=== PATIENT | female | born 1975 | race Caucasian/White ===

== ENCOUNTER → 2017-08-07 | Outpatient (CLI) | payer OTHER | LOC: FIMAGING 08:29 | PROVIDERS: ATTEND Internal Medicine Hematology & Oncology | DX: Z12.31 Encounter for screening mammogram for malignant neoplasm of breast (principal); Z85.3 Personal history of malignant neoplasm of breast; Z80.3 Family history of malignant neoplasm of breast | CPT/HCPCS: G0202 ==

== ENCOUNTER → 2018-08-10 | Outpatient (CLI) | payer OTHER | LOC: FIMAGING 08:06 | PROVIDERS: ATTEND Internal Medicine Hematology & Oncology | DX: Z12.31 Encounter for screening mammogram for malignant neoplasm of breast (principal); Z85.3 Personal history of malignant neoplasm of breast; Z80.3 Family history of malignant neoplasm of breast ==

== ENCOUNTER → 2019-02-04 | Outpatient (CLI) | payer OTHER ==
[~2019-02-04] MED LIST: GADOBUTROL 10 ML VIAL IVP ONE
== END ==
LOC: FIMAGING 12:20
PROVIDERS: ATTEND Internal Medicine Hematology & Oncology
DX: C49.A0 Gastrointestinal stromal tumor, unspecified site (principal)
CPT/HCPCS: A9585

== ENCOUNTER 2019-02-18 13:31 | Day surgery (SDC) | payer OTHER ==
[2019-02-18] MEDS ORDERED: LR 1,000 ML IV SCH (14:00)
[2019-02-18] MEDS ORDERED: INDOMETHACIN 50 MG SUPP PR PRN (14:07)
--- NOTE | 2019-02-18 14:07 | PDGENHP ---
History & Physical Chief Complaint: gist History of Present Illness: 44 year old female with a history of GIST s/p resection presents for follow up regarding abnormal imaging. Recurrence? Pertinent Past, Social, Family History: PMHx: GIST. Psurghx: GIST Relevant Physical Exam: HEENT: anicteric. CV: RRR +s1s2. Lungs: CTAB. Abd: soft, nt, +bs Cardiorespiratory Assessment: ASA 2
[2019-02-18] MEDS ORDERED: NS 500 ML IV SCH (14:15)
--- NOTE | 2019-02-18 14:18 | PDANEPAE ---
ANE Past Medical History - Cardiovascular History Hx Hypertension: No Hx Arrhythmias: No Hx Chest Pain: No Hx Coronary Artery / Peripheral Vascular Disease: No Hx CHF / Valvular Disease: No Hx Palpitations: Yes Cardiovascular History Comment: Palpitations 2003, Holter monitoring negative. - Pulmonary History Hx COPD: No Hx Asthma/Reactive Airway Disease: No Hx Recent Upper Respiratory Infection: No Hx Oxygen in Use at Home: No Hx Sleep Apnea: No Sleep Apnea Screening Result - Last Documented: Negative - Neurologic History Hx Cerebrovascular Accident: No Hx Seizures: No Hx Dementia: No - Endocrine History Hx Diabetes: No - Renal History Hx Renal Disorders: No - Liver History Hx Hepatic Disorders: No - Neurological & Psychiatric Hx Hx Neurological and Psychiatric Disorders: No - Cancer History Hx Cancer: Yes Cancer History Comment: L breast cancer 2008 - Congenital Disorder History Hx Congenital Disorders: No - GI History Hx Gastrointestinal Disorders: Yes Gastrointestinal History Comment: GIST tumor. - Other Health History Other Health History: Anemia after chemotherapy in 2008. - Chronic Pain History Chronic Pain: No - Surgical History Prior Surgeries: 1997. L lumpectomy 2008. GIST resection 2009 ANE Review of Systems Review of Systems: - Exercise capacity METS (RN): 4 METS ANE Patient History - Allergies Allergies/Adverse Reactions: No Known Allergies Allergy (Unverified 02/13/19 12:27) - Home Medications Home Medications: Claritin 02/18/19 [Last Taken 02/13/19] Multivitamin 02/18/19 [Last Taken 02/13/19] - NPO status NPO Since - Liquids (Date): 02/18/19 NPO Since - Liquids (Time): 12:00 NPO Since - Solids (Date): 02/18/19 NPO Since - Solids (Time): 05:45 - Smoking Hx Smoking Status: Never smoked - Family Anes Hx Family Hx Anesthesia Complications: None. ANE Labs/Vital Signs - Vital Signs Blood Pressure: 140/68 Heart Rate: 78 Respiratory Rate: 18 O2 Sat (%): 98 Height: 157.48 cm Weight: 49.895 kg ANE Physical Exam - Airway Mallampati Score: Class 2 - ASA Status ASA Status: II ANE Anesthesia Plan Total IV Anesthesia: Yes
[2019-02-18] MEDS ORDERED: PROPOFOL/EMULSION 500 MG/50 ML BOTTLE IV ONE (14:19)
[2019-02-18] MEDS ORDERED: MIDAZOLAM 2 MG/2 ML VIAL ONE (14:20)
[2019-02-18] MEDS ORDERED: ONDANSETRON 4 MG/2 ML VIAL ONE ×2 (14:21→16:05)
[2019-02-18] MEDS ORDERED: PROPOFOL 200 MG/20 ML VIAL ONE ×2 (14:51→15:23)
[2019-02-18] MEDS ORDERED: LR 500 ML IV PRN (15:37)
[2019-02-18] MEDS ORDERED: fentaNYL 100 MCG/2 ML INJ IVP PRN (15:37)
[2019-02-18] MEDS ORDERED: NALOXONE HCL 0.4 MG/ML INJ IVP PRN (15:37)
--- NOTE | 2019-02-18 15:37 | POSTANESTH ---
Post Anesthetic Evaluation Cardiovascular Status: Normal, Stable Respiratory Status: Normal, Stable Level of Consciousness/Mental Status: Can Participate in Eval Pain Control: Adequate, Prn Tx Ordered Nausea/Vomiting Control: Adequate, Prn Tx Ordered Complications Possibly Related to Anesthesia: None Noted
[2019-02-18] MEDS ORDERED: ONDANSETRON 4 MG/2 ML VIAL IVP ONE (16:30)
--- NOTE | 2019-02-18 16:38 | GPN ---
[f rep st] PROCEDURE NOTE DATE OF PROCEDURE: 02/18/2019 PROCEDURE: Esophagogastroduodenoscopy with biopsy, endoscopic ultrasound with fine needle aspiration. INDICATION: The patient is a 44-year-old female with a history of a gastrointestinal stromal tumor who presents to [facility] for evaluation of abnormal imaging as well as heartburn. She had a recent CT scan , which showed an enlarging mass posterior to the pancreatic head. She presents for further evaluation and possible tissue acquisition. CONSENT: Risks, benefits, and alternatives of the procedure were discussed in great detail with the patient. Risks of infection, bleeding, perforation, sedation, and pancreatitis were discussed. All questions answered. Informed consent was obtained. MEDICATIONS: Propofol. Please see anesthesia record for details. ESTIMATED BLOOD LOSS: Insignificant. ESOPHAGOGASTRODUODENOSCOPY EXAMINATION: The Olympus upper endoscope was introduced into the mouth and advancedto the esophagus. The proximal, mid, and distal esophagus normal in appearance. The stomach was entered and closely examined, including retroflexed views of angularis, cardia, and fundus. A hiatal hernia was noted. The mucosa of the antrum and the body of the stomach was erythematous in a patchy distribution and biopsies were taken. The duodenal bulb and second portion duodenum were normal in appearance. ENDOSCOPIC ULTRASOUND EXAMINATION: The Olympus linear echoendoscope was introduced in the mouth and advanced to the second portion of the duodenum.The esophagus, stomach, duodenum were visualized endosonographically. The pancreas was examined from the uncinate process to the tail, where the spleen was seen. The pancreas had hyperechoic foci throughout. The pancreatic duct was not dilated. No mass lesion noted. The common bile duct was not dilated. The liver was carefully examined and no mass was noted. No suspicious peripancreatic,periportal, perigastric or periesophageal nodes were appreciated. A 5 cm complex lesion was seen posterior to the head of the pancreas. . It was mainly hypoechoic but did have a 1cm area that was isoechoic. Doppler was utilized to rule out intervening vessels. Four transduodenal passes made with a [employer] 25-gauge needle in the lesion. Cytology was present and adequate cellularity was confirmed. An another additional pass was made for a core biopsy with a 22-gauge Ac[employer] needle. IMPRESSION: 1. Mass posterior to the pancreatic head, status post fine-needle aspiration and fine needle biopsy. 2. Gastritis, status post biopsy. 3. Hiatal hernia. RECOMMENDATIONS: 1. Follow up on biopsies and fine-needle aspiration results. 2. Anti-reflux lifestyle. /[id number]/MODL MTDD
[2019-02-18 16:39] VITALS: BP 126/71
== END 2019-02-18 17:15 | disposition home or self-care (01) ==
LOC: FSGY 13:31
PROVIDERS: ATTEND Internal Medicine Gastroenterology
PROC: 0D998ZX Drainage of Duodenum, Via Natural or Artificial Opening Endoscopic, Diagnostic (ICD-10-PCS; principal; 2019-02-18 14:45)
DX: K31.9 Disease of stomach and duodenum, unspecified (principal); Z85.09 Personal history of malignant neoplasm of other digestive organs; K29.70 Gastritis, unspecified, without bleeding; Z85.3 Personal history of malignant neoplasm of breast
CPT/HCPCS: J2250; J2405; J2704